=== PATIENT | female | born 1980 | race American Indian/Alaskan Native ===

== ENCOUNTER 2021-01-31 09:53 | Emergency (ER) | payer MEDICAID ==
[2021-01-31] MEDS ORDERED: Sodium Chloride 0.9% 10 ML Syringe FLUSH PRN (10:18)
[2021-01-31 10:34] VITALS: BP 170/111; PULSE 105
[2021-01-31 10:56] LABS: ANION GAP 16.2 mEq/L (7-13); CHLORIDE,CL 100 mmol/L (98-107); SODIUM,NA 140 mmol/L (136-145)
[2021-01-31] MEDS ORDERED: Sodium Chloride 0.9% 1,000 ML IV ONE (10:59)
[2021-01-31] MEDS ORDERED: Ketorolac 30 MG/ML SDV IVPUSH ONE (10:59)
[2021-01-31] MEDS ORDERED: metroNIDAZOLE 250 MG Tab PO ONE (11:00)
--- NOTE | 2021-01-31 11:32 | CR ---
PROCEDURE INFORMATION: Exam: XR Chest Exam date and time: 01/31/2021 11:28 AM Age: 40 years old Clinical indication: Chest pain TECHNIQUE: Imaging protocol: XR of the chest Views: 1 view. COMPARISON: No relevant prior studies available. FINDINGS: Lungs: Unremarkable. No consolidation. Pleural spaces: Unremarkable. No pleural effusion. No pneumothorax. Heart/Mediastinum: Unremarkable. No cardiomegaly. Bones/joints: Unremarkable. IMPRESSION: No acute findings.
--- NOTE | 2021-01-31 11:39 | EDM.PDOC ---
Scribed by Umu Ramirez 01/31/21 1016 Ashely Batista MD ED HPI GENERAL MEDICAL PROBLEM - General Chief Complaint: Chest Pain Stated Complaint: DIZZINESS, LIGHT HEADED Time Seen by Provider: 01/31/21 10:16 Source of Information: Reports: Patient, RN, RN Notes Reviewed History Limitations: Reports: No Limitations - History of Present Illness INITIAL COMMENTS - FREE TEXT/NARRATIVE: Patient presents to ED by POV stating she developed chest pain shortly after fixing breakfast this morning. Reports a sharp and squeezing pain all across the upper chest. Admits to some epigastric pressure and pain between the shoulder blades. Denies cough, fever, chills or radiating pain. On January 29, she helped move heavy furniture and afterwards had some upper and mid back pain so she is not sure if the other symptoms were attributable to that or not. Denies history of cardiac disease, asthma or COPD. Denies history of PE or DVT. Onset: Gradual Duration: Getting Worse Location: Reports: Chest, Abdomen (upper), Back Quality: Reports: Ache, Pressure Severity: Moderate Improves with: Reports: None Worsens with: Reports: None Associated Symptoms: Reports: No Other Symptoms Chest Pain Score (Numeric/FACES): 7 - Related Data Allergies Allergy/AdvReac Type Severity Reaction Status Date / Time No Known Allergies Allergy Verified 01/31/21 10:34 Home Meds: Home Meds . 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 ED EXAM, DIZZINESS - Physical Exam Exam: See Below Exam Limited By: No Limitations General Appearance: Alert, WD/WN, No Apparent Distress Eye Exam: Bilateral Eye: EOMI, Normal Inspection Ears: Normal External Exam, Hearing Grossly Normal Nose: Normal Inspection, Normal Mucosa, No Blood Throat/Mouth: Normal Inspection, Normal Lips, Normal Oropharynx, Normal Voice, No Airway Compromise Head Exam: Atraumatic, Normocephalic Neck: Normal Inspection, Non-Tender, Full Range of Motion Respiratory/Chest: No Respiratory Distress, Lungs Clear, Normal Breath Sounds, No Accessory Muscle Use, Chest Non-Tender, Other (Chest pain was not reproducible.) Cardiovascular: Normal Peripheral Pulses, Regular Rate, Rhythm, No Edema, No Gallop, No JVD, No Murmur, Tachycardia GI/Abdominal: Normal Bowel Sounds, Soft, No Organomegaly, No Distention, No Abnormal Bruit, No Mass, Tender (mild midepigastric tenderness) (Female) Exam: Deferred Rectal (Female) Exam: Deferred Neurological: Alert, Normal Mood/Affect, CN II-XII Intact, Normal Gait, No Motor/Sensory Deficits, Oriented x 3 Back Exam: Normal Inspection, Full Range of Motion, NT Extremities: Normal Inspection, Normal Range of Motion, Non-Tender, No Pedal Edema, Normal Capillary Refill Psychiatric: Normal Affect, Normal Mood Skin Exam: Warm, Dry, Intact, Normal Color, No Rash #1 Interpretation EKG Date: 01/31/21 Time: 10:27 Rhythm: Other (sinus tachycardia) Rate (Beats/Min): 105 [place]: Normal P-Wave: Present QRS: Normal ST-T: Normal QT: Prolonged (borderline QT interval) Comparison: NA - No Prior EKG Course - Vital Signs Last Recorded V/S: Last Vital Signs Temp 97.5 F 01/31/21 10:32 Pulse 105 H 01/31/21 10:32 Resp 22 H 01/31/21 10:32 BP 170/111 H 01/31/21 10:32 Pulse Ox - Orders/Labs/Meds Orders: Active Orders 24 hr Category Date Time Status EKG 12 Lead [EKG Documentation Completion] [RC] STAT Care 01/31/21 10:19 Active Peripheral IV Care [RC] . DIRECTED Care 01/31/21 10:19 Active Chest 1V Frontal [CR] Stat Exams 01/31/21 11:13 Ordered CULTURE URINE [RM] Stat Lab 01/31/21 10:20 Received STD PANEL 3 [REF] Stat Lab 01/31/21 10:20 Received Sodium Chloride 0.9% [Normal Saline] 1,000 ml Med 01/31/21 10:59 Active IV .BOLUS Sodium Chloride 0.9% [Saline Flush] Med 01/31/21 10:18 Active 10 ml FLUSH ASDIRECTED PRN Peripheral IV Insertion Adult [OM.PC] Stat Oth 01/31/21 10:19 Ordered Medication Orders Sodium Chloride (Normal Saline) 1,000 mls @ 999 mls/hr IV .BOLUS ONE Stop: 01/31/21 11:59 Last Admin: 01/31/21 11:10 Dose: 999 mls/hr Documented by: SHELLEY Sodium Chloride (Saline Flush) 10 ml FLUSH ASDIRECTED PRN PRN Reason: Keep Vein Open Last Admin: 01/31/21 11:09 Dose: 10 ml Documented by: SHELLEY Labs: Laboratory Tests 01/31/21 01/31/21 01/31/21 Range/Units 10:20 10:20 10:20 WBC (5.0-10.0) 10^3/uL RBC (4.2-5.4) 10^6/uL Hgb (12.0-16.0) g/dL Hct (37.0-47.0) % MCV (80-100) fL MCH (27.0-34.0) pg MCHC (33.0-35.0) g/dL Plt Count (150-450) 10^3/uL Neut % (Auto) (42.2-75.2) % Lymph % (Auto) (20.5-50.1) % [place] % (Auto) (2-8) % Eos % (Auto) (1.0-3.0) % Baso % (Auto) (0.0-1.0) % PT (9.0-12.0) SEC INR (0.9-1.2) D-Dimer, Quantitative (0-400) ng/mL Sodium (136-145) mmol/L Potassium (3.5-5.1) mmol/L Chloride (98-107) mmol/L Carbon Dioxide (21-32) mmol/L Anion Gap (7-13) mEq/L BUN (7-18) mg/dL Creatinine (0.55-1.02) mg/dL Est Cr Clr Drug Dosing mL/min Estimated GFR (MDRD) BUN/Creatinine Ratio (No establ ref range) Glucose (74-99) mg/dL Calcium (8.5-10.1) mg/dL Total Bilirubin (0.2-1.0) mg/dL AST (15-37) U/L ALT (14-59) U/L Alkaline Phosphatase (46-116) U/L Troponin I (0.000-0.056) ng/mL C-Reactive Protein (0.0-0.9) mg/dL Total Protein (6.4-8.2) g/dL Albumin (3.4-5.0) g/dL Globulin Albumin/Globulin Ratio Amylase (25-115) U/L Lipase (73-393) U/L Urine Color Dark yellow (YELLOW) Urine Appearance Cloudy (CLEAR) Urine pH 6.0 (5.0-9.0) Ur Specific [place] >= 1.030 (1.005-1.030) Urine Protein 100 H (NEGATIVE) Urine Glucose (UA) Negative (NEGATIVE) Urine Ketones Negative (NEGATIVE) Urine Occult Blood Large H (NEGATIVE) Urine Nitrite Negative (NEGATIVE) Urine Bilirubin Small H (NEGATIVE) Urine Urobilinogen 1.0 (0.2-1.0) mg/dL Ur Leukocyte Esterase Small H (NEGATIVE) Urine RBC 5-10 H /HPF Urine WBC 75-100 H (0-5/HPF) /HPF Ur Epithelial Cells Many H (NOT SEEN) /HPF Calcium Oxalate Crystal Few H (NOT SEEN) /HPF Amorphous Sediment Few (NOT SEEN) /HPF Urine Bacteria Many H (0-FEW/HPF) /HPF Urine Mucus Few H (NOT SEEN) /LPF Urine Other See note Urine HCG, Qual Negative Urine Opiates Screen Negative (NEGATIVE) Ur Oxycodone Screen Negative (NEGATIVE) Urine Methadone Screen Negative (NEGATIVE) Ur Barbiturates Screen Negative (NEGATIVE) U Tricyclic Antidepress Negative (NEGATIVE) Ur Phencyclidine Scrn Negative (NEGATIVE) Ur Amphetamine Screen Positive H (NEGATIVE) U Methamphetamines Scrn Positive H (NEGATIVE) Urine MDMA Screen Positive H (NEGATIVE) U Benzodiazepines Scrn Negative (NEGATIVE) Urine Cocaine Screen Negative (NEGATIVE) U Marijuana (THC) Screen Negative (NEGATIVE) Ethyl Alcohol (0) mg/dL 01/31/21 01/31/21 01/31/21 Range/Units 10:28 10:28 10:28 WBC 6.6 (5.0-10.0) 10^3/uL RBC 5.36 (4.2-5.4) 10^6/uL Hgb 15.1 D (12.0-16.0) g/dL Hct 44.2 (37.0-47.0) % MCV 82.5 D (80-100) fL MCH 28.2 (27.0-34.0) pg MCHC 34.2 (33.0-35.0) g/dL Plt Count 334 D (150-450) 10^3/uL Neut % (Auto) 64.8 (42.2-75.2) % Lymph % (Auto) 25.0 (20.5-50.1) % [place] % (Auto) 5.9 (2-8) % Eos % (Auto) 3.8 H (1.0-3.0) % Baso % (Auto) 0.5 (0.0-1.0) % PT 9.6 (9.0-12.0) SEC INR 1.0 (0.9-1.2) D-Dimer, Quantitative 261 (0-400) ng/mL Sodium 140 (136-145) mmol/L Potassium 3.2 L (3.5-5.1) mmol/L Chloride 100 (98-107) mmol/L Carbon Dioxide 27 (21-32) mmol/L Anion Gap 16.2 H (7-13) mEq/L BUN 13 (7-18) mg/dL Creatinine 0.85 (0.55-1.02) mg/dL Est Cr Clr Drug Dosing 77.49 mL/min Estimated GFR (MDRD) > 60 BUN/Creatinine Ratio 15.3 (No establ ref range) Glucose 80 (74-99) mg/dL Calcium 9.4 (8.5-10.1) mg/dL Total Bilirubin 0.5 (0.2-1.0) mg/dL AST 52 H (15-37) U/L ALT 68 H (14-59) U/L Alkaline Phosphatase 148 H (46-116) U/L Troponin I < 0.017 (0.000-0.056) ng/mL C-Reactive Protein < 0.2 (0.0-0.9) mg/dL Total Protein 9.0 H (6.4-8.2) g/dL Albumin 4.5 (3.4-5.0) g/dL Globulin 4.5 Albumin/Globulin Ratio 1.0 Amylase 34 (25-115) U/L Lipase 67 L (73-393) U/L Urine Color (YELLOW) Urine Appearance (CLEAR) Urine pH (5.0-9.0) Ur Specific [place] (1.005-1.030) Urine Protein (NEGATIVE) Urine Glucose (UA) (NEGATIVE) Urine Ketones (NEGATIVE) Urine Occult Blood (NEGATIVE) Urine Nitrite (NEGATIVE) Urine Bilirubin (NEGATIVE) Urine Urobilinogen (0.2-1.0) mg/dL Ur Leukocyte Esterase (NEGATIVE) Urine RBC /HPF Urine WBC (0-5/HPF) /HPF Ur Epithelial Cells (NOT SEEN) /HPF Calcium Oxalate Crystal (NOT SEEN) /HPF Amorphous Sediment (NOT SEEN) /HPF Urine Bacteria (0-FEW/HPF) /HPF Urine Mucus (NOT SEEN) /LPF Urine Other Urine HCG, Qual Urine Opiates Screen (NEGATIVE) Ur Oxycodone Screen (NEGATIVE) Urine Methadone Screen (NEGATIVE) Ur Barbiturates Screen (NEGATIVE) U Tricyclic Antidepress (NEGATIVE) Ur Phencyclidine Scrn (NEGATIVE) Ur Amphetamine Screen (NEGATIVE) U Methamphetamines Scrn (NEGATIVE) Urine MDMA Screen (NEGATIVE) U Benzodiazepines Scrn (NEGATIVE) Urine Cocaine Screen (NEGATIVE) U Marijuana (THC) Screen (NEGATIVE) Ethyl Alcohol < 3 (0) mg/dL Meds: Medications Generic Name Dose Route Start Last Admin Trade Name Freq PRN Reason Stop Dose Admin Sodium Chloride 1,000 mls @ 999 mls/hr 01/31/21 10:59 01/31/21 11:10 Normal Saline IV 01/31/21 11:59 999 mls/hr .BOLUS ONE Administration Sodium Chloride 10 ml 01/31/21 10:18 01/31/21 11:09 Saline Flush FLUSH 10 ml ASDIRECTED PRN Administration Keep Vein Open Discontinued Medications Generic Name Dose Route Start Last Admin Trade Name Freq PRN Reason Stop Dose Admin Ketorolac Tromethamine 30 mg 01/31/21 10:59 01/31/21 11:10 Toradol IVPUSH 01/31/21 11:00 30 mg ONETIME ONE Administration Metronidazole 500 mg 01/31/21 11:00 01/31/21 11:10 Metronidazole PO 01/31/21 11:01 500 mg ONETIME ONE Administration - Radiology Interpretation Free Text/Narrative:: [facility] Final Radiology Report Call: [phone] assistance Online chat: [email or web address] Name: DENISE PENDLETON Age: 40Years F Date: 01/31/2021 SSN: -- : [id number] Study: CR CHEST 1V FRONTAL Requesting Physician: ASHELY LYLES Images: 1 Addl Studies: Provided Clinical History: chest pain Contrast: Contrast Medium: Contrast Amount: Contrast Method: CONFIDENTIALITY STATEMENT This report is intended only for use by the referring physician, and only in accordance with law. If you received this in error, call [phone]. Page 1 of 1 PROCEDURE INFORMATION: Exam: XR Chest Exam date and time: 01/31/2021 11:28 AM Age: 40 years old Clinical indication: Chest pain TECHNIQUE: Imaging protocol: XR of the chest Views: 1 view. COMPARISON: No relevant prior studies available. FINDINGS: Lungs: Unremarkable. No consolidation. Pleural spaces: Unremarkable. No pleural effusion. No pneumothorax. Heart/Mediastinum: Unremarkable. No cardiomegaly. Bones/joints: Unremarkable. IMPRESSION: No acute findings. Thank you for allowing us to participate in the care of your patient. Dictated and Authenticated by: Paty Yang MD 01/31/2021 11:31 AM Central Time ([place] & [place]) Departure - Departure Time of Disposition: 11:37 Disposition: Home, Self-Care 01 Condition: Good Clinical Impression: Non-cardiac chest pain, Strain of thoracic back region, Dehydration, Bacterial vaginosis, Methamphetamine use, Elevated blood pressure reading MDMA (methylenedioxymethamphetamine) poisoning Qualifiers: Encounter type: initial encounter Injury intent: accidental or unintentional Qualified Code(s): T43.641A - Poisoning by ecstasy, accidental (unintentional), initial encounter - Discharge Information *PRESCRIPTION DRUG MONITORING PROGRAM REVIEWED*: Not Applicable *COPY OF PRESCRIPTION DRUG MONITORING REPORT IN PATIENT NICOLA: Not Applicable Instructions: Nonspecific Chest Pain, Adult, [id number], Thoracic Strain, Dehydration, Adult, [id number], Bacterial Vaginosis, [id number], Accidental Drug Poisoning, Adult, Methamphetamines Use Disorder, Hypertension, Adult Forms: ED Department Discharge Additional Instructions: Rx: Flagyl (Metronidazole) 500mg *Do not drink alcohol while taking this medication. Rx: Cyclobenzaprine 10mg Drink plenty of water. Abstain from drug use. Consider going to a treatment program if you are unable to quit on your own. You had a high level of MDMA (Ecstasy) in your system today which may have caused some or all of your symptoms. Follow up in clinic in 1 week for recheck of urine and blood pressure. Sepsis Event Note (ED) - Focused Exam Vital Signs: Vital Signs Temp Pulse Resp BP 01/31/21 10:32 97.5 F 105 H 22 H 170/111 H - My Orders Last 24 Hours: My Active Orders 01/31/21 10:18 Sodium Chloride 0.9% [Saline Flush] 10 ml FLUSH ASDIRECTED PRN 01/31/21 10:19 EKG 12 Lead [EKG Documentation Completion] [RC] STAT Peripheral IV Care [RC] . DIRECTED Peripheral IV Insertion Adult [OM.PC] Stat 01/31/21 10:20 CULTURE URINE [RM] Stat STD PANEL 3 [REF] Stat 01/31/21 10:59 Sodium Chloride 0.9% [Normal Saline] 1,000 ml IV .BOLUS 01/31/21 11:13 Chest 1V Frontal [CR] Stat - Assessment/Plan Last 24 Hours: My Active Orders 01/31/21 10:18 Sodium Chloride 0.9% [Saline Flush] 10 ml FLUSH ASDIRECTED PRN 01/31/21 10:19 EKG 12 Lead [EKG Documentation Completion] [RC] STAT Peripheral IV Care [RC] . DIRECTED Peripheral IV Insertion Adult [OM.PC] Stat 01/31/21 10:20 CULTURE URINE [RM] Stat STD PANEL 3 [REF] Stat 01/31/21 10:59 Sodium Chloride 0.9% [Normal Saline] 1,000 ml IV .BOLUS 01/31/21 11:13 Chest 1V Frontal [CR] Stat I have read and agree with the documentation that has been completed regarding this visit. By signing this record, I attest that the documentation was completed in my physical presence and is an accurate record of the encounter.
[2021-02-04 11:46] LABS: C.TRACHOMATIS BY TMA Positive (Negative); N.GONORRHOEAE BY TMA Negative (Negative)
== END 2021-01-31 11:50 | disposition home or self-care (01) ==
LOC: DL.ED 09:53
DX: S29.012A Strain of muscle and tendon of back wall of thorax, initial encounter (principal); T43.641A Poisoning by ecstasy, accidental (unintentional), initial encounter; E86.0 Dehydration; R07.89 Other chest pain; N76.0 Acute vaginitis; B96.89 Other specified bacterial agents as the cause of diseases classified elsewhere; R03.0 Elevated blood-pressure reading, without diagnosis of hypertension; R10.13 Epigastric pain; R00.0 Tachycardia, unspecified; X50.0XXA Overexertion from strenuous movement or load, initial encounter
CPT/HCPCS: 36415; 71045; 80053; 80305; 80307; 81001; 81025; 82150; 83690; 84484; 85025; 85379; 85610; 86140; 87086; 87088; 87186; 87491; 87563; 87591; 93005; 96374; 99285; A9270; J1885; J7030; 93010; 99283

== ENCOUNTER 2022-12-31 18:12 | Emergency (ER) | payer MEDICAID ==
[~2022-12-31 18:12] MED LIST: Sodium Chloride 0.9% 10 ML Syringe FLUSH PRN
[2022-12-31] MEDS ORDERED: Acetaminophen 500 MG Tab PO ONE (18:26)
[2022-12-31] MEDS ORDERED: MVI, Adult with Vitamin K 10 ML, Folic Acid 1 MG, Thiamine 100 MG in Lactated Ringers 1... IV ONE ×4 (18:26)
[2022-12-31 19:16] LABS: ANION GAP 16.8 mEq/L (7-13); CHLORIDE,CL 94 mmol/L (98-107); SODIUM,NA 131 mmol/L (136-145)
[2022-12-31 19:18] LABS: ESTIMATED GFR 85 mL/min (>=60)
[2022-12-31 19:24] LABS: PTT,PARTIAL THROMBOPLSTIN TIME 28.8 SEC (22.0-34.0)
[2022-12-31] MEDS ORDERED: Potassium Chloride 20 MEQ in Premix Bag 1 BAG IV ONE (19:30)
[2022-12-31] MEDS ORDERED: Potassium Chloride 10 MEQ Tab.ER PO ONE (19:30)
[2022-12-31] MEDS ORDERED: Magnesium Sulfate/Water 2 GM in Premix Bag 1 BAG IV ONE (20:16)
[2022-12-31 21:29] VITALS: BP 144/96; PULSE 109
[2022-12-31] MEDS ORDERED: Sodium Chloride 0.9% 1,000 ML IV ONE (22:19)
[2022-12-31 23:14] LABS: AMPHETAMINES,URINE POSITIVE (NEGATIVE); BARBITURATES,URINE NEGATIVE (NEGATIVE); BENZODIAZEPINE,URINE NEGATIVE (NEGATIVE); MDMA (ECSTASY), URINE NEGATIVE (NEGATIVE); METHADONE,URINE NEGATIVE (NEGATIVE); METHAMPHETAMINES,URINE POSITIVE (NEGATIVE); OPIATES,URINE NEGATIVE (NEGATIVE); OXYCODONE,URINE NEGATIVE (NEGATIVE); PHENCYCLIDINE,URINE NEGATIVE (NEGATIVE); TCA,URINE NEGATIVE (NEGATIVE)
[2022-12-31 23:19] LABS: ANION GAP 15.1 mEq/L (7-13)
== END 2023-01-01 00:05 | disposition home or self-care (01) ==
LOC: DL.ED 18:12
DX: R07.89 Other chest pain (principal); E87.6 Hypokalemia; F15.90 Other stimulant use, unspecified, uncomplicated; E83.42 Hypomagnesemia; E87.1 Hypo-osmolality and hyponatremia; F10.10 Alcohol abuse, uncomplicated; I10 Essential (primary) hypertension
CPT/HCPCS: 36415; 71045; 80048; 80053; 80305-QW; 80307; 81001; 82150; 83605; 83690; 83735; 84484; 85025; 85610; 85730; 86140; 87086; 87088; 87186; 93005; 93010; 96361; 96365; 96366; 96367; 96368; 99284; 99285-25; A9270-GY; J3411; J3475; J3480; J3490; J7030; J7120

== ENCOUNTER 2024-03-02 12:42 | Emergency (ER) | payer MEDICAID ==
[2024-03-02 13:09] LABS: BASOPHILS PERCENT AUTO 0.2 % (0.0-1.0); EOSINOPHILS PERCENT AUTO 1.1 % (1.0-3.0); HEMATOCRIT 34.1 % (37.0-47.0); HEMOGLOBIN 11.4 g/dL (12.0-16.0); LYMPHOCYTES PERCENT AUTO 27.5 % (20.5-50.1); MEAN CORPUSCULAR HEMOGLOBIN 28.4 pg (27.0-34.0); MEAN CORPUSCULAR HGB CONC 33.4 g/dL (33.0-35.0); MEAN CORPUSCULAR VOLUME 84.8 fL (80-100); MONOCYTES PERCENT AUTO 8.3 % (2-8); NEUTROPHILS PERCENT AUTO 62.9 % (42.2-75.2); PLATELET COUNT,PLT 290 10^3/uL (150-450); RED BLOOD CELL COUNT 4.02 10^6/uL (4.2-5.4); WHITE BLOOD CELL COUNT,WBC 6.7 10^3/uL (5.0-10.0)
[2024-03-02 13:27] LABS: A/G RATIO 0.8; ALBUMIN 3.4 g/dL (3.4-5.0); ANION GAP 15.4 mEq/L (7-13); BILIRUBIN TOTAL 0.7 mg/dL (0.2-1.0); BUN/CREATININE RATIO 6.8 (No establ ref range); CALCIUM 7.6 mg/dL (8.5-10.1); CREATININE 0.74 mg/dL (0.55-1.02); EST CRCL DRUG DOSING (CG) 97.29 mL/min; MAGNESIUM 1.2 mg/dL (1.8-2.4); PROTEIN TOTAL,TP 7.7 g/dL (6.4-8.2)
[2024-03-02 13:31] LABS: POTASSIUM,K 2.4 mmol/L (3.5-5.1)
[2024-03-02] MEDS: Potassium Chloride 10 MEQ Tab.ER PO ONE (14:08)
[2024-03-02] MEDS: NS with KCl 40mEq 1,000 ML IV SCH (14:08)
[2024-03-02] MEDS: Magnesium Sulfate/Water 4 GM in Premix Bag 1 BAG IV ONE (14:09)
[2024-03-02 14:16] LABS: APPEARANCE,URINE CLEAR (CLEAR); BILIRUBIN,URINE NEGATIVE (NEGATIVE); COLOR,URINE YELLOW (YELLOW); GLUCOSE,URINE NEGATIVE (NEGATIVE); KETONES,URINE NEGATIVE (NEGATIVE); LEUKOCYTE ESTERASE,URINE TRACE (NEGATIVE); NITRITE,URINE NEGATIVE (NEGATIVE); OCCULT BLOOD,URINE NEGATIVE (NEGATIVE); PH,URINE 6.5 (5.0-9.0); PROTEIN,URINE NEGATIVE (NEGATIVE); UROBILINOGEN,URINE 0.2 mg/dL (0.2-1.0)
[2024-03-02 14:24] LABS: BACTERIA,URINE OCCASIONAL /HPF (0-FEW/HPF); EPITHELIAL CELLS,URINE OCCASIONAL /HPF (NOT SEEN); MUCUS,URINE RARE /LPF (NOT SEEN); RBC,URINE NOT SEEN /HPF (0-5); WBC,URINE 0-5 /HPF (0-5/HPF)
[2024-03-02 17:25] VITALS: BP 128/81; PULSE 94
== END 2024-03-02 17:57 | disposition home or self-care (01) ==
LOC: DL.ED 12:42
DX: E83.42 Hypomagnesemia (principal); F10.120 Alcohol abuse with intoxication, uncomplicated; E87.6 Hypokalemia; R29.0 Tetany; I10 Essential (primary) hypertension; Y90.9 Presence of alcohol in blood, level not specified
CPT/HCPCS: 36415; 70450; 80053; 80307; 81001; 83735; 85025; 87086; 87088; 87186; 96365; 96366; 96368; 99284; A9270; J3475; J3480

== ENCOUNTER 2024-10-13 01:15 | Inpatient (IN) | payer MEDICAID ==
[2024-10-13 01:33] LABS: BASOPHILS PERCENT AUTO 0.6 % (0.0-1.0); EOSINOPHILS PERCENT AUTO 1.4 % (1.0-3.0); HEMATOCRIT 35.1 % (37.0-47.0); HEMOGLOBIN 11.3 g/dL (12.0-16.0); LYMPHOCYTES PERCENT AUTO 20.5 % (20.5-50.1); MEAN CORPUSCULAR HEMOGLOBIN 26.8 pg (27.0-34.0); MEAN CORPUSCULAR HGB CONC 32.2 g/dL (33.0-35.0); MEAN CORPUSCULAR VOLUME 83.2 fL (80-100); MONOCYTES PERCENT AUTO 8.2 % (2-8); NEUTROPHILS PERCENT AUTO 69.3 % (42.2-75.2); PLATELET COUNT,PLT 102 10^3/uL (150-450); RED BLOOD CELL COUNT 4.22 10^6/uL (4.2-5.4)
[2024-10-13] MEDS: LORazepam 2 MG/ML SDV IVPUSH ONE (01:37)
[2024-10-13 01:56] LABS: A/G RATIO 0.7; ALBUMIN 3.8 g/dL (3.4-5.0); ANION GAP 16.7 mEq/L (7-13); BILIRUBIN TOTAL 1.7 mg/dL (0.2-1.0); BUN/CREATININE RATIO 8.9 (No establ ref range); CALCIUM 9.2 mg/dL (8.5-10.1); CREATININE 0.9 mg/dL (0.55-1.02); EST CRCL DRUG DOSING (CG) 71.03 mL/min; MAGNESIUM 1.3 mg/dL (1.8-2.4); POTASSIUM,K 2.7 mmol/L (3.5-5.1); PROTEIN TOTAL,TP 9.2 g/dL (6.4-8.2)
[2024-10-13] MEDS: MVI, Adult with Vitamin K 10 ML, Folic Acid 1 MG, Thiamine 100 MG in Lactated Ringers 1... IV ONE (02:05)
[2024-10-13] MEDS: Potassium Chloride 20 MEQ in Premix Bag 1 BAG IV ONE (03:41)
[2024-10-13] MEDS ORDERED: LORazepam 2 MG/ML SDV IVPUSH PRN (03:45)
[2024-10-13] MEDS ORDERED: Flumazenil 0.1 MG/ML 5 ML MDV IVPUSH PRN (03:45)
[2024-10-13] MEDS ORDERED: Naloxone 2 MG/2 ML Syringe IVPUSH PRN (03:48)
[2024-10-13] MEDS ORDERED: Polyethylene Glycol 3350 Powder 17 GM Packet PO PRN (03:48)
[2024-10-13] MEDS ORDERED: Bisacodyl 5 MG Tab PO PRN (03:48)
[2024-10-13] MEDS ORDERED: Magnesium Hydroxide 400 MG/5 ML Susp 30 ML Cup PO PRN (03:48)
[2024-10-13] MEDS ORDERED: Temazepam 15 MG Cap PO PRN (03:48)
[2024-10-13] MEDS ORDERED: Sodium Chloride 0.9% 10 ML Syringe FLUSH PRN (03:48)
[2024-10-13] MEDS: Diltiazem 25 MG/5 ML SDV IVPUSH PRN (03:51)
[2024-10-13] MEDS: diazePAM 5 MG/ML MDV IV ONE ×3 (03:53→21:15)
[2024-10-13] MEDS ORDERED: HYDROmorphone 1 MG/ML Syringe IVPUSH PRN (04:29)
[2024-10-13 04:36] LABS: CHOLESTEROL HDL 36 mg/dL (40-59); CHOLESTEROL LDL CALCULATED 151 mg/dL (0-100); CHOLESTEROL TOTAL 215 mg/dL (0-199); TRIGLYCERIDES 142 mg/dL (0-149)
[2024-10-13 04:45] LABS: APPEARANCE,URINE CLOUDY (CLEAR); BILIRUBIN,URINE NEGATIVE (NEGATIVE); COLOR,URINE YELLOW (YELLOW); GLUCOSE,URINE NEGATIVE (NEGATIVE); KETONES,URINE NEGATIVE (NEGATIVE); LEUKOCYTE ESTERASE,URINE NEGATIVE (NEGATIVE); NITRITE,URINE POSITIVE (NEGATIVE); OCCULT BLOOD,URINE TRACE-INTACT (NEGATIVE); PROTEIN,URINE 30 (NEGATIVE)
[2024-10-13 04:48] LABS: AMPHETAMINES,URINE NEGATIVE (NEGATIVE); BARBITURATES,URINE NEGATIVE (NEGATIVE); BENZODIAZEPINE,URINE POSITIVE (NEGATIVE); MDMA (ECSTASY), URINE NEGATIVE (NEGATIVE); METHADONE,URINE NEGATIVE (NEGATIVE); METHAMPHETAMINES,URINE NEGATIVE (NEGATIVE); OPIATES,URINE NEGATIVE (NEGATIVE); OXYCODONE,URINE NEGATIVE (NEGATIVE); PHENCYCLIDINE,URINE NEGATIVE (NEGATIVE); TCA,URINE NEGATIVE (NEGATIVE)
[2024-10-13 04:54] LABS: BACTERIA,URINE MANY /HPF (0-FEW/HPF); EPITHELIAL CELLS,URINE MANY /HPF (NOT SEEN); MUCUS,URINE FEW /LPF (NOT SEEN)
[2024-10-13] MEDS: hydrALAZINE 20 MG/ML SDV IVPUSH PRN (05:23)
[2024-10-13] MEDS: Pantoprazole 40 MG Vial IVPUSH ONE ×3 (05:30→21:12)
[2024-10-13] MEDS: Ondansetron 4 MG/2 ML SDV IVPUSH PRN (05:56)
[2024-10-13] MEDS: Magnesium Sulfate/Water Premix 2 GM in Premix Bag 1 BAG IV ONE ×3 (06:48→22:42)
[2024-10-13] MEDS: Albuterol/Ipratropium 3.0-0.5 MG/3 ML Neb Soln NEB PRN (08:36)
[2024-10-13] MEDS: Ibuprofen 600 MG Tab PO PRN (09:29)
[2024-10-13 12:34] LABS: ANION GAP 14.1 mEq/L (7-13); CALCIUM 8.9 mg/dL (8.5-10.1); CREATININE 0.98 mg/dL (0.55-1.02); EST CRCL DRUG DOSING (CG) 65.23 mL/min; MAGNESIUM 2.2 mg/dL (1.8-2.4); POTASSIUM,K 3.1 mmol/L (3.5-5.1)
[2024-10-13] MEDS: Aspirin 325 MG Tab PO ONE (13:53)
[2024-10-13] MEDS: Heparin Sodium 5,000 Units/ML Vial IVPUSH ONE (13:54)
[2024-10-13] MEDS: Saccharomyces Boulardii (Probiotic) 250 MG Cap PO STA (13:54)
[2024-10-13] MEDS: Potassium Chloride 10 MEQ Tab.ER PO ONE (13:54)
[2024-10-13] MEDS: Levofloxacin/Dextrose 5%-Water 250 MG in Premix Bag 1 BAG IV ONE (13:55)
[2024-10-13] MEDS: Heparin Sodium/0.45% NaCl 25,000 UNITS/500 ML BAG IV SCH (14:15)
[2024-10-13] MEDS ORDERED: Magnesium Sulfate/D5W 1 GM/100 ML BAG IV ONE (19:21)
[2024-10-13] MEDS: Pantoprazole 40 MG Tab.CR PO SCH (19:35)
[2024-10-13] MEDS: Valproate Sodium 500 MG in Sodium Chloride 0.9% 100 ML IV ONE (21:01)
[2024-10-13] MEDS: atorvaSTATin 10 MG Tab PO SCH (21:12)
[2024-10-13] MEDS: Magnesium Sulfate/D5W 1 GM IV ONE (21:14)
[2024-10-13] MEDS: Acetaminophen 325 MG Tab PO PRN (21:15)
[2024-10-14] MEDS: Heparin Sodium 5,000 Units/ML Vial IVPUSH ONE (03:04)
[2024-10-14] MEDS: Pantoprazole 40 MG Tab.CR PO SCH (05:27)
[2024-10-14 06:29] LABS: BASOPHILS PERCENT AUTO 0.3 % (0.0-1.0); HEMATOCRIT 34.2 % (37.0-47.0); HEMOGLOBIN 10.8 g/dL (12.0-16.0); LYMPHOCYTES PERCENT AUTO 21.5 % (20.5-50.1); MEAN CORPUSCULAR HEMOGLOBIN 26.9 pg (27.0-34.0); MEAN CORPUSCULAR HGB CONC 31.6 g/dL (33.0-35.0); MEAN CORPUSCULAR VOLUME 85.3 fL (80-100); NEUTROPHILS PERCENT AUTO 70.2 % (42.2-75.2); PLATELET COUNT,PLT 95 10^3/uL (150-450); RED BLOOD CELL COUNT 4.01 10^6/uL (4.2-5.4); WHITE BLOOD CELL COUNT,WBC 6.4 10^3/uL (5.0-10.0)
[2024-10-14 07:18] LABS: ALBUMIN 3.2 g/dL (3.4-5.0); ANION GAP 13.2 mEq/L (7-13); BILIRUBIN TOTAL 2.2 mg/dL (0.2-1.0); BUN/CREATININE RATIO 7.3 (No establ ref range); CALCIUM 8.3 mg/dL (8.5-10.1); CREATININE 0.82 mg/dL (0.55-1.02); EST CRCL DRUG DOSING (CG) 77.96 mL/min; MAGNESIUM 1.8 mg/dL (1.8-2.4); POTASSIUM,K 3.2 mmol/L (3.5-5.1); PROTEIN TOTAL,TP 7.9 g/dL (6.4-8.2)
[2024-10-14 07:19] LABS: A/G RATIO 0.68
[2024-10-14] MEDS: Saccharomyces Boulardii (Probiotic) 250 MG Cap PO SCH (09:03)
[2024-10-14] MEDS: Potassium Chloride 10 MEQ Tab.ER PO SCH (09:03)
[2024-10-14] MEDS: Aspirin 81 MG Tab.Chew PO SCH (09:03)
[2024-10-14] MEDS: Levofloxacin/Dextrose 5%-Water 250 MG in Premix Bag 1 BAG IV SCH (09:03)
[2024-10-14] MEDS: Carvedilol 6.25 MG Tab PO SCH (09:04)
[2024-10-14] MEDS ORDERED: hydrOXYzine HCl 25 MG Tab PO PRN (12:27)
[2024-10-14] MEDS: Multivitamin Tab PO SCH (21:26)
[2024-10-14] MEDS: Folic Acid 1 MG Tab PO SCH (21:26)
[2024-10-14] MEDS: Thiamine 100 MG Tab PO SCH (21:26)
[2024-10-14] MEDS: Diazepam 5 MG Tab PO ONE (21:26)
[2024-10-14] MEDS: Magnesium Oxide 400 MG Tab PO SCH (21:26)
[2024-10-15 06:18] VITALS: PULSE 86
[2024-10-15] MEDS: Nitrofurantoin Monohydrate/Macrocrystalline 100 MG Cap PO ONE (07:27)
[2024-10-15] MEDS: Lisinopril 20 MG Tab PO SCH (07:27)
[2024-10-15] MEDS: FLU (Flulaval Triv) 24-25(6MOS UP)/PF 45 MCG/0.5 ML Syringe IM ONE (07:29)
[2024-10-15 07:30] VITALS: BP 155/89
[2024-10-15] MEDS: Pneumococcal 20-Valent Conjug 0.5 ML Syringe IM ONE (07:42)
[2024-10-15] MEDS ORDERED: Potassium Chloride 10 MEQ Tab.ER PO SCH ×2 (09:00)
== END 2024-10-15 07:37 | disposition home or self-care (01) | DRG 896 ==
LOC: DL.ED 01:15 → DL.MS 02:24 → OBSVTOIN 13:30
PROVIDERS: ADMIT Internal Medicine; ATTEND Internal Medicine
PROC: 3E0234Z Introduction of Serum, Toxoid and Vaccine into Muscle, Percutaneous Approach (ICD-10-PCS; principal; 2024-10-15)
DX: F10.930 Alcohol use, unspecified with withdrawal, uncomplicated (principal); I21.4 Non-ST elevation (NSTEMI) myocardial infarction; E46 Unspecified protein-calorie malnutrition; E87.1 Hypo-osmolality and hyponatremia; N39.0 Urinary tract infection, site not specified; E78.5 Hyperlipidemia, unspecified; I10 Essential (primary) hypertension; K21.9 Gastro-esophageal reflux disease without esophagitis; E66.9 Obesity, unspecified; E87.6 Hypokalemia; E83.42 Hypomagnesemia; K29.20 Alcoholic gastritis without bleeding; R73.9 Hyperglycemia, unspecified; E80.6 Other disorders of bilirubin metabolism; R74.01 Elevation of levels of liver transaminase levels; E88.09 Other disorders of plasma-protein metabolism, not elsewhere classified; D69.59 Other secondary thrombocytopenia; Z23 Encounter for immunization; Z68.33 Body mass index [BMI] 33.0-33.9, adult; Z98.51 Tubal ligation status
CPT/HCPCS: 36415; 71045; 80048; 80053; 80061; 80305-QW; 80307; 81001; 83735; 84484; 85025; 85730; 87086; 87088; 87186; 90686; 93005; 93010; 93306; 94640; 96365; 96366; 96367; 96375; 96376; 99223; 99232; 99238; 99284; 99285-25; A9270-GY; G0008; G0378; J0360; J1644; J1956; J2060; J2405; J2470; J3360; J3411; J3475; J3480; J3490; J7120; J7620-GY

== ENCOUNTER 2024-11-30 13:41 | Inpatient (IN) | payer MEDICAID ==
[2024-11-30 14:22] LABS: BASOPHILS PERCENT AUTO 0.2 % (0.0-1.0); EOSINOPHILS PERCENT AUTO 1.1 % (1.0-3.0); HEMATOCRIT 30.9 % (37.0-47.0); HEMOGLOBIN 9.7 g/dL (12.0-16.0); MEAN CORPUSCULAR HEMOGLOBIN 26.1 pg (27.0-34.0); MEAN CORPUSCULAR HGB CONC 31.4 g/dL (33.0-35.0); MEAN CORPUSCULAR VOLUME 83.1 fL (80-100); MONOCYTES PERCENT AUTO 8.4 % (2-8); NEUTROPHILS PERCENT AUTO 51.3 % (42.2-75.2); PLATELET COUNT,PLT 73 10^3/uL (150-450); RED BLOOD CELL COUNT 3.72 10^6/uL (4.2-5.4); WHITE BLOOD CELL COUNT,WBC 4.5 10^3/uL (5.0-10.0)
[2024-11-30 14:42] LABS: INR 1.3 (0.9-1.2); PROTHROMBIN TIME 12.8 SEC (9.0-12.0); PTT,PARTIAL THROMBOPLSTIN TIME 29.9 SEC (22.0-34.0)
[2024-11-30 14:46] LABS: LACTIC ACID 1.5 mmol/L (0.4-2.0)
[2024-11-30 14:50] LABS: A/G RATIO 0.6; ALANINE AMINOTRANSFERASE,ALT 38 U/L (14-59); ALBUMIN 3.5 g/dL (3.4-5.0); ALKALINE PHOSPHATASE 183 U/L (46-116); ANION GAP 15.5 mEq/L (7-13); ASPARTATE AMNIOTRANSFERASE,AST 150 U/L (15-37); BILIRUBIN TOTAL 1.1 mg/dL (0.2-1.0); BLOOD UREA NITROGEN,BUN 5 mg/dL (7-18); BUN/CREATININE RATIO 6.5 (No establ ref range); CALCIUM 7.8 mg/dL (8.5-10.1); CARBON DIOXIDE,CO2 24 mmol/L (21-32); CHLORIDE,CL 107 mmol/L (98-107); CREATININE 0.77 mg/dL (0.55-1.02); EST CRCL DRUG DOSING (CG) 82.19 mL/min; GLUCOSE RANDOM 122 mg/dL (70-99); LIPASE 44 U/L (16-77); MAGNESIUM 1.4 mg/dL (1.8-2.4); POTASSIUM,K 2.5 mmol/L (3.5-5.1); PROTEIN TOTAL,TP 8.9 g/dL (6.4-8.2); SODIUM,NA 144 mmol/L (136-145)
[2024-11-30 14:53] LABS: C-REACTIVE PROTEIN < 0.50 ng/dL (<=0.50); ESTIMATED GFR 99 mL/min (>=60); ETHANOL BLOOD MEDICAL 352 mg/dL (0)
[2024-11-30] MEDS: LORazepam 2 MG/ML SDV IVPUSH ONE (14:58)
[2024-11-30] MEDS: MVI, Adult with Vitamin K 10 ML, Folic Acid 1 MG, Thiamine 100 MG in Lactated Ringers 1... IV ONE (14:58)
[2024-11-30] MEDS: Sodium Chloride 0.9% 10 ML Syringe FLUSH PRN (14:58)
[2024-11-30] MEDS: Magnesium Sulfate/Water Premix 2 GM in Premix Bag 1 BAG IV ONE (15:21)
[2024-11-30] MEDS: Potassium Chloride 20 MEQ in Premix Bag 1 BAG IV ONE (15:26)
[2024-11-30 16:50] LABS: APPEARANCE,URINE SLIGHTLY CLOUDY (CLEAR); BILIRUBIN,URINE NEGATIVE (NEGATIVE); COLOR,URINE YELLOW (YELLOW); GLUCOSE,URINE NEGATIVE (NEGATIVE); KETONES,URINE NEGATIVE (NEGATIVE); LEUKOCYTE ESTERASE,URINE NEGATIVE (NEGATIVE); NITRITE,URINE NEGATIVE (NEGATIVE); OCCULT BLOOD,URINE TRACE-INTACT (NEGATIVE); PROTEIN,URINE NEGATIVE (NEGATIVE)
[2024-11-30 16:52] LABS: AMPHETAMINES,URINE NEGATIVE (NEGATIVE); BARBITURATES,URINE NEGATIVE (NEGATIVE); BENZODIAZEPINE,URINE NEGATIVE (NEGATIVE); MDMA (ECSTASY), URINE NEGATIVE (NEGATIVE); METHADONE,URINE NEGATIVE (NEGATIVE); METHAMPHETAMINES,URINE NEGATIVE (NEGATIVE); OPIATES,URINE NEGATIVE (NEGATIVE); OXYCODONE,URINE NEGATIVE (NEGATIVE); PHENCYCLIDINE,URINE NEGATIVE (NEGATIVE); TCA,URINE NEGATIVE (NEGATIVE)
[2024-11-30 17:09] LABS: BACTERIA,URINE MODERATE /HPF (0-FEW/HPF); EPITHELIAL CELLS,URINE RARE /HPF (NOT SEEN); RBC,URINE 0-5 /HPF (0-5); WBC,URINE 0-5 /HPF (0-5/HPF)
[2024-11-30] MEDS ORDERED: Acetaminophen 325 MG Tab PO PRN (18:47)
[2024-11-30] MEDS ORDERED: oxyCODONE 5 MG Tab PO PRN (18:47)
[2024-11-30] MEDS ORDERED: Polyethylene Glycol 3350 Powder 17 GM Packet PO PRN (19:01)
[2024-11-30] MEDS: LORazepam 1 MG Tab PO SCH ×2 (19:56)
[2024-11-30] MEDS: chlordiazePOXIDE 25 MG Cap PO SCH ×2 (19:57)
[2024-11-30] MEDS: LORazepam 2 MG/ML SDV IV SCH (19:57)
[2024-11-30] MEDS: Multivitamin Tab PO SCH (19:58)
[2024-11-30] MEDS: Folic Acid 1 MG Tab PO SCH (19:58)
[2024-11-30] MEDS: Nitrofurantoin Monohydrate/Macrocrystalline 100 MG Cap PO SCH (19:58)
[2024-11-30] MEDS: Magnesium Oxide 400 MG Tab PO SCH (19:59)
[2024-11-30] MEDS: atorvaSTATin 10 MG Tab PO SCH (19:59)
[2024-11-30] MEDS: Thiamine 100 MG Tab PO SCH (20:00)
[2024-11-30] MEDS: hydrOXYzine HCl 25 MG Tab PO PRN (20:05)
[2024-11-30] MEDS: Lisinopril 20 MG Tab PO SCH (20:05)
[2024-11-30] MEDS: Sodium Chloride 0.9% 1,000 ML IV SCH (20:07)
[2024-11-30] MEDS: Pantoprazole 40 MG Vial IVPUSH SCH (20:09)
[2024-11-30] MEDS: Enoxaparin 40 MG/0.4 ML Syringe SUBCUT SCH (20:09)
[2024-12-01] MEDS: Potassium Chloride 20 MEQ in Premix Bag 1 BAG IV ONE ×2 (00:44→13:08)
[2024-12-01 06:46] LABS: HEMATOCRIT 26.6 % (37.0-47.0); HEMOGLOBIN 8.3 g/dL (12.0-16.0); MEAN CORPUSCULAR HEMOGLOBIN 25.9 pg (27.0-34.0); MEAN CORPUSCULAR HGB CONC 31.2 g/dL (33.0-35.0); MEAN CORPUSCULAR VOLUME 82.9 fL (80-100); RED BLOOD CELL COUNT 3.21 10^6/uL (4.2-5.4); WHITE BLOOD CELL COUNT,WBC 3.4 10^3/uL (5.0-10.0)
[2024-12-01 07:18] LABS: ANION GAP 16.6 mEq/L (7-13); BILIRUBIN TOTAL 1.3 mg/dL (0.2-1.0); BUN/CREATININE RATIO 6.1 (No establ ref range); CALCIUM 7.2 mg/dL (8.5-10.1); CREATININE 0.66 mg/dL (0.55-1.02); EST CRCL DRUG DOSING (CG) 95.89 mL/min; POTASSIUM,K 2.6 mmol/L (3.5-5.1); PROTEIN TOTAL,TP 7.6 g/dL (6.4-8.2)
[2024-12-01 07:20] LABS: A/G RATIO 0.65
[2024-12-01] MEDS: Carvedilol 6.25 MG Tab PO SCH (08:54)
[2024-12-01] MEDS: Ondansetron 4 MG/2 ML SDV IVPUSH PRN (08:55)
[2024-12-01] MEDS: Potassium Chloride 10 MEQ Tab.ER PO SCH (08:55)
[2024-12-01] MEDS: Aspirin 81 MG Tab.Chew PO SCH (08:55)
[2024-12-01] MEDS: Saccharomyces Boulardii (Probiotic) 250 MG Cap PO SCH (08:55)
[2024-12-01] MEDS: Magnesium Sulfate/Water Premix 2 GM in Premix Bag 1 BAG IV SCH (13:09)
[2024-12-01] MEDS: Potassium Chloride 10 MEQ Tab.ER PO ONE (16:51)
[2024-12-01] MEDS: LORazepam 1 MG Tab PO SCH (18:22)
[2024-12-02 07:19] VITALS: BP 149/90; PULSE 105
== END 2024-12-02 09:48 | disposition left against medical advice (07) | DRG 894 ==
LOC: DL.ED 13:41 → DL.MS 17:06
PROVIDERS: ADMIT Internal Medicine; ATTEND Internal Medicine
DX: F10.129 Alcohol abuse with intoxication, unspecified (principal); E87.6 Hypokalemia; I10 Essential (primary) hypertension; K21.9 Gastro-esophageal reflux disease without esophagitis; E78.5 Hyperlipidemia, unspecified; Y90.8 Blood alcohol level of 240 mg/100 ml or more; E83.42 Hypomagnesemia; Z79.82 Long term (current) use of aspirin; Z79.02 Long term (current) use of antithrombotics/antiplatelets; Z98.51 Tubal ligation status; Z79.899 Other long term (current) drug therapy
CPT/HCPCS: 36415; 71045; 80053; 80305-QW; 80307; 81001; 81025; 83605; 83690; 83735; 84145; 84484; 85025; 85027; 85610; 85730; 86140; 87040; 93005; 93010; 96365; 96366; 96367; 96368; 96375; 99222; 99232; 99239; 99284; 99285-25; A9270-GY; J1650; J2060; J2405; J2470; J3411; J3475; J3480; J3490; J7030; J7120

== ENCOUNTER 2025-03-10 19:53 | Emergency (ER) | payer MEDICAID ==
[2025-03-10 20:17] VITALS: BP 156/89; PULSE 115
[2025-03-10] MEDS ORDERED: Sodium Chloride 0.9% 10 ML Syringe FLUSH PRN (20:18)
[2025-03-10 20:38] LABS: HEMATOCRIT 23.5 % (37.0-47.0); HEMOGLOBIN 7.8 g/dL (12.0-16.0); MEAN CORPUSCULAR HEMOGLOBIN 29.5 pg (27.0-34.0); MEAN CORPUSCULAR HGB CONC 33.2 g/dL (33.0-35.0); PLATELET COUNT,PLT 274 10^3/uL (150-450); RED BLOOD CELL COUNT 2.64 10^6/uL (4.2-5.4); WHITE BLOOD CELL COUNT,WBC 8.9 10^3/uL (5.0-10.0)
[2025-03-10 20:46] LABS: BASOPHILS PERCENT AUTO 0.3 % (0.0-1.0); EOSINOPHILS PERCENT AUTO 1.5 % (1.0-3.0); LYMPHOCYTES PERCENT AUTO 11.7 % (20.5-50.1); MONOCYTES PERCENT AUTO 10.8 % (2-8); NEUTROPHILS PERCENT AUTO 75.7 % (42.2-75.2)
[2025-03-10 21:04] LABS: INR 1.5 (0.9-1.2); PROTHROMBIN TIME 15.4 SEC (9.0-12.0); PTT,PARTIAL THROMBOPLSTIN TIME 34.8 SEC (22.0-34.0)
[2025-03-10 21:14] LABS: ALBUMIN 2.1 g/dL (3.4-5.0); ANION GAP 16.9 mEq/L (7-13); BILIRUBIN TOTAL 19.3 mg/dL (0.2-1.0); BUN/CREATININE RATIO 3.6 (No establ ref range); C-REACTIVE PROTEIN 2.94 ng/dL (<=0.50); CALCIUM 7.9 mg/dL (8.5-10.1); CREATININE 0.83 mg/dL (0.55-1.02); EST CRCL DRUG DOSING (CG) 76.25 mL/min; MAGNESIUM 1.6 mg/dL (1.8-2.4); POTASSIUM,K 2.9 mmol/L (3.5-5.1); PROTEIN TOTAL,TP 7.7 g/dL (6.4-8.2)
[2025-03-10 21:16] LABS: A/G RATIO 0.38
[2025-03-10 21:18] LABS: LACTIC ACID 2.9 mmol/L (0.4-2.0)
[2025-03-10 21:54] LABS: BAND PERCENT MAN 3 %; EOSINOPHILS PERCENT MAN 2 % (1-3); LYMPHOCYTES PERCENT MAN 12 % (20-50); MONOCYTES PERCENT MAN 9 % (2-8); SEG NEUTROPHILS PERCENT MAN 74 % (42-75)
== END 2025-03-10 21:11 ==
LOC: DL.ED 19:53
DX: K72.00 Acute and subacute hepatic failure without coma (principal); K70.9 Alcoholic liver disease, unspecified; I10 Essential (primary) hypertension; K21.9 Gastro-esophageal reflux disease without esophagitis
CPT/HCPCS: 36415; 80053; 80307; 82140; 83605; 83690; 83735; 85025; 85610; 85730; 86140; 87040; 93005; 93010; 99285

== ENCOUNTER 2025-03-18 18:49 | Emergency (ER) | payer MEDICAID ==
[2025-03-18 20:41] LABS: HEMATOCRIT 25.4 % (37.0-47.0); HEMOGLOBIN 8.7 g/dL (12.0-16.0); MEAN CORPUSCULAR HGB CONC 34.3 g/dL (33.0-35.0); MEAN CORPUSCULAR VOLUME 96.2 fL (80-100); PLATELET COUNT,PLT 220 10^3/uL (150-450); RED BLOOD CELL COUNT 2.64 10^6/uL (4.2-5.4); WHITE BLOOD CELL COUNT,WBC 13.8 10^3/uL (5.0-10.0)
[2025-03-18 20:47] LABS: BASOPHILS PERCENT AUTO 0.6 % (0.0-1.0); EOSINOPHILS PERCENT AUTO 1.7 % (1.0-3.0); LYMPHOCYTES PERCENT AUTO 9.3 % (20.5-50.1); MONOCYTES PERCENT AUTO 9.4 % (2-8)
[2025-03-18 20:53] LABS: APPEARANCE,URINE SLIGHTLY CLOUDY (CLEAR); BILIRUBIN,URINE LARGE (NEGATIVE); COLOR,URINE AMBER (YELLOW); GLUCOSE,URINE 100 (NEGATIVE); KETONES,URINE 15 (NEGATIVE); LEUKOCYTE ESTERASE,URINE LARGE (NEGATIVE); NITRITE,URINE NEGATIVE (NEGATIVE); OCCULT BLOOD,URINE TRACE-LYSED (NEGATIVE); PROTEIN,URINE 100 (NEGATIVE)
[2025-03-18 20:53] LABS: INR 1.7 (0.9-1.2); PROTHROMBIN TIME 16.7 SEC (9.0-12.0)
[2025-03-18 20:56] LABS: LACTIC ACID 1.6 mmol/L (0.4-2.0)
[2025-03-18] MEDS: Sodium Chloride 0.9% 1,000 ML IV ONE ×3 (21:03→23:16)
[2025-03-18 21:05] LABS: B-TYPE NATRIURETIC PEPTIDE,BNP 46 pg/ml (0-100)
[2025-03-18 21:07] LABS: AMPHETAMINES,URINE NEGATIVE (NEGATIVE); BARBITURATES,URINE NEGATIVE (NEGATIVE); BENZODIAZEPINE,URINE POSITIVE (NEGATIVE); MDMA (ECSTASY), URINE NEGATIVE (NEGATIVE); METHADONE,URINE NEGATIVE (NEGATIVE); METHAMPHETAMINES,URINE NEGATIVE (NEGATIVE); OPIATES,URINE NEGATIVE (NEGATIVE); OXYCODONE,URINE NEGATIVE (NEGATIVE); PHENCYCLIDINE,URINE NEGATIVE (NEGATIVE); TCA,URINE NEGATIVE (NEGATIVE)
[2025-03-18 21:14] LABS: ALANINE AMINOTRANSFERASE,ALT 35 U/L (14-59); ALBUMIN 1.7 g/dL (3.4-5.0); ALKALINE PHOSPHATASE 133 U/L (46-116); ANION GAP 17.3 mEq/L (7-13); ASPARTATE AMNIOTRANSFERASE,AST 139 U/L (15-37); BLOOD UREA NITROGEN,BUN 18 mg/dL (7-18); BUN/CREATININE RATIO 4.1 (No establ ref range); CARBON DIOXIDE,CO2 19 mmol/L (21-32); CHLORIDE,CL 98 mmol/L (98-107); CREATININE 4.38 mg/dL (0.55-1.02); EST CRCL DRUG DOSING (CG) 14.45 mL/min; GLUCOSE RANDOM 120 mg/dL (70-99); LIPASE 223 U/L (16-77); POTASSIUM,K 3.3 mmol/L (3.5-5.1); PROTEIN TOTAL,TP 6.3 g/dL (6.4-8.2); SODIUM,NA 131 mmol/L (136-145)
[2025-03-18 21:18] LABS: A/G RATIO 0.37; BILIRUBIN TOTAL 30.9 mg/dL (0.2-1.0); ESTIMATED GFR 12 mL/min (>=60); ETHANOL BLOOD MEDICAL < 3 mg/dL (0)
[2025-03-18 21:28] LABS: AMORPHOUS SEDIMENT,URINE MODERATE /HPF (NOT SEEN); BACTERIA,URINE MANY /HPF (0-FEW/HPF); EPITHELIAL CELLS,URINE MANY /HPF (NOT SEEN); MUCUS,URINE MODERATE /LPF (NOT SEEN); RBC,URINE 0-5 /HPF (0-5)
[2025-03-18 21:39] LABS: LYMPHOCYTES PERCENT MAN 5 % (20-50); MONOCYTES PERCENT MAN 7 % (2-8); SEG NEUTROPHILS PERCENT MAN 88 % (42-75)
[2025-03-18] MEDS: cefTRIAXone 1 GM Vial IVPUSH ONE (21:53)
[2025-03-18 23:42] VITALS: BP 96/44; PULSE 71
== END 2025-03-18 23:50 ==
LOC: DL.ED 18:49
DX: N17.9 Acute kidney failure, unspecified (principal); N39.0 Urinary tract infection, site not specified; K74.60 Unspecified cirrhosis of liver; I10 Essential (primary) hypertension
CPT/HCPCS: 36415; 80053; 80305; 80307; 81001; 81025; 82140; 83605; 83690; 83735; 83880; 85025; 85610; 87086; 93005; 93010; 96361; 96374; 99285; J0696; J7030

== ENCOUNTER 2025-04-08 01:10 | Emergency (ER) | payer MEDICAID ==
[2025-04-08 01:54] LABS: HEMATOCRIT 24.5 % (37.0-47.0); HEMOGLOBIN 8.1 g/dL (12.0-16.0); MEAN CORPUSCULAR HEMOGLOBIN 31.2 pg (27.0-34.0); MEAN CORPUSCULAR HGB CONC 33.1 g/dL (33.0-35.0); MEAN CORPUSCULAR VOLUME 94.2 fL (80-100); PLATELET COUNT,PLT 222 10^3/uL (150-450); WHITE BLOOD CELL COUNT,WBC 20.3 10^3/uL (5.0-10.0)
[2025-04-08 02:03] LABS: BASOPHILS PERCENT AUTO 0.4 % (0.0-1.0); EOSINOPHILS PERCENT AUTO 1.9 % (1.0-3.0); LYMPHOCYTES PERCENT AUTO 7.6 % (20.5-50.1); MONOCYTES PERCENT AUTO 6.2 % (2-8); NEUTROPHILS PERCENT AUTO 83.9 % (42.2-75.2)
[2025-04-08 02:18] LABS: LACTIC ACID 1.7 mmol/L (0.4-2.0)
[2025-04-08 02:27] LABS: LYMPHOCYTES PERCENT MAN 5 % (20-50); MONOCYTES PERCENT MAN 4 % (2-8); SEG NEUTROPHILS PERCENT MAN 90 % (42-75)
[2025-04-08 02:28] LABS: EOSINOPHILS PERCENT MAN 1 % (1-3)
[2025-04-08 02:36] LABS: ALANINE AMINOTRANSFERASE,ALT 88 U/L (14-59); ALBUMIN 2.2 g/dL (3.4-5.0); ALKALINE PHOSPHATASE 152 U/L (46-116); ANION GAP 15.9 mEq/L (7-13); ASPARTATE AMNIOTRANSFERASE,AST 168 U/L (15-37); BLOOD UREA NITROGEN,BUN 26 mg/dL (7-18); BUN/CREATININE RATIO 12.3 (No establ ref range); CALCIUM 8.6 mg/dL (8.5-10.1); CARBON DIOXIDE,CO2 21 mmol/L (21-32); CHLORIDE,CL 95 mmol/L (98-107); CREATININE 2.11 mg/dL (0.55-1.02); EST CRCL DRUG DOSING (CG) 29.99 mL/min; GLUCOSE RANDOM 95 mg/dL (70-99); MAGNESIUM 1.8 mg/dL (1.8-2.4); POTASSIUM,K 2.9 mmol/L (3.5-5.1); PROTEIN TOTAL,TP 5.5 g/dL (6.4-8.2); SODIUM,NA 129 mmol/L (136-145)
[2025-04-08 02:37] LABS: A/G RATIO 0.67; BILIRUBIN TOTAL 35.7 mg/dL (0.2-1.0); ESTIMATED GFR 29 mL/min (>=60); ETHANOL BLOOD MEDICAL < 3 mg/dL (0)
[2025-04-08] MEDS: Spironolactone 25 MG Tab PO ONE (03:00)
[2025-04-08] MEDS: Potassium Chloride 10 MEQ Tab.ER PO ONE (03:00)
[2025-04-08] MEDS: Furosemide 40 MG Tab PO ONE (03:00)
[2025-04-08 03:10] VITALS: BP 98/51; PULSE 86
== END 2025-04-08 03:07 | disposition home or self-care (01) ==
LOC: DL.ED 01:10
DX: R18.8 Other ascites (principal); I10 Essential (primary) hypertension
CPT/HCPCS: 36415; 80053; 80307; 82140; 83605; 83735; 85025; 99284; A9270